=== PATIENT | male | born 2000 | race Caucasian/White ===

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

== ENCOUNTER 2021-08-27 09:18 | Day surgery (SDC) | payer OTHER ==
[~2021-08-27] VITALS: Ht 167.6 cm; Wt 98.4 kg
[~2021-08-27 09:18] MED LIST changes: +AMOXICILLIN500 M2 PO; +BUSPIRONE15 MG PO; +MULTI VIT PO
[2021-08-27] MEDS ORDERED: PERCOCET 5/325M1 TAB PO (11:16)
[2021-08-27 12:30] VITALS: BP 102/61
== END 2021-08-27 11:50 | disposition home or self-care (01) ==
LOC: ORM 09:18
PROVIDERS: ATTEND Surgery
DX: L05.91 Pilonidal cyst without abscess (principal); F41.9 Anxiety disorder, unspecified
CPT/HCPCS: C9290; J0131; J1100